=== PATIENT | male | born 1960 | race Hispanic/Latino ===

== ENCOUNTER 2016-11-06 08:00 | Emergency (ER) | payer OTHER ==
[2016-11-06 08:02] VITALS: BMI 30.2
--- NOTE | 2016-11-06 08:32 | ED PDOC ---
Arrival/HPI - General Historian: Patient - History of Present Illness Time/Duration: > week Symptom Onset: Gradual Symptom Course: Worsening <Giuliano Sanches - Last Filed: 11/06/16 09:26> <Giuliano Martinez - Last Filed: 11/06/16 10:30> - General Chief Complaint: Lower Extremity Problem/Injury Time Seen by Provider: 11/06/16 08:08 - History of Present Illness Narrative History of Present Illness (Text): 11/06/16 08:30 56 y/o male with hx PVD presenting with right distal leg pain. Patient states he is able to ambulate about 1/2 block before he experiences right distal leg cramping and pain. He denies pain at rest, swelling or coolness to the leg. Patient states she spoke with Dr. Trey Espinoza regarding his symptoms who advised the patient to come to the ED for evaluation. Patient was seen here on with similar complaints in the left leg. Arterial studies showed SFA occulsive disease left greater than right. The patient was subsequently successfully treated by Dr. Trey Valdes (Giuliano Sanches) Past Medical History - Provider Review Nursing Documentation Reviewed: Yes - Past History Past History: Non-Contributing - Infectious Disease Hx of Infectious Diseases: None - Tetanus Immunization Tetanus Immunization: Unknown - Cardiac Hx Hypertension: Yes Other/Comment: cardiac stent - Musculoskeletal/Rheumatological Hx Back Pain: Yes - Psychiatric Hx Substance Use: No - Surgical History Hx Open Heart Surgery: Yes (CABG) <Giuliano Sanches - Last Filed: 11/06/16 09:26> Family/Social History - Physician Review Nursing Documentation Reviewed: Yes Family/Social History: No Known Family HX Smoking Status: Unknown If Ever Smoked Hx Alcohol Use: No Hx Substance Use: No <Giuliano Sanches - Last Filed: 11/06/16 09:26> Allergies/Home Meds <Giuliano Sanches - Last Filed: 11/06/16 09:26> <Giuliano Martinez - Last Filed: 11/06/16 10:30> Allergies/Adverse Reactions: Allergies No Known Allergies Allergy (Verified 11/06/16 08:02) Home Medications: Home Meds Medication Instructions Recorded Confirmed Aspirin [Ecotrin] 81 mg PO DAILY 08/20/16 11/06/16 Carvedilol [Coreg] 12.5 mg PO BID 08/20/16 11/06/16 Enalapril Maleate [Vasotec] 2.5 mg PO BID 08/20/16 11/06/16 Pravastatin Sodium [Pravachol] 40 mg PO DAILY 08/20/16 11/06/16 Review of Systems - Physician Review All systems were reviewed & negative as marked: Yes - Review of Systems Constitutional: Normal Eyes: Normal ENT: Normal Respiratory: Normal Cardiovascular: Normal, Other (left distal leg pain ). absent: Chest Pain, Palpitations Gastrointestinal: absent: Abdominal Pain, Nausea, Vomiting Genitourinary Male: absent: Dysuria, Frequency, Hematuria Musculoskeletal: Back Pain. absent: Arthralgias Skin: absent: Rash, Pruritis Neurological: absent: Headache, Dizziness, Focal Weakness <Giuliano Sanches Filed: 11/06/16 09:26> Physical Exam Vital Signs Reviewed: Yes Temperature: Afebrile Blood Pressure: Normal Pulse: Regular Respiratory Rate: Normal Appearance: Positive for: Well-Appearing Pain Distress: None Mental Status: Positive for: Alert and Oriented X 3 - Systems Exam Head: Present: Atraumatic, Normocephalic Pupils: Present: PERRL Extroacular Muscles: Present: EOMI Conjunctiva: Present: Normal Mouth: Present: Moist Mucous Membranes Neck: Present: Normal Range of Motion. No: JVD Respiratory/Chest: Present: Clear to Auscultation, Good Air Exchange. No: Respiratory Distress Cardiovascular: Present: Regular Rate and Rhythm, Normal S1, S2, Other (faint dorsalis pedis pulse on right compared to left ) Abdomen: No: Tenderness Upper Extremity: Present: Normal Inspection. No: Cyanosis, Edema Lower Extremity: Present: Normal Inspection. No: Edema, CALF TENDERNESS, NORMAL PULSES (faint dorsalis pedis on left ), Cyanosis Neurological: Present: GCS=15, CN II-XII Intact, Speech Normal Skin: Present: Warm, Dry Psychiatric: Present: Alert, Oriented x 3, Normal Insight, Normal Concentration <Giuliano Sanches Filed: 11/06/16 09:26> Vital Signs Temp Pulse Resp BP Pulse Ox 11/06/16 08:00 98.0 F 85 16 149/100 H 98 Medical Decision Making - EKG Interpretation Interpreted by ED Physician: Yes Type: 12 lead EKG Comparison: No previous EKG avail. <Giuliano Sanches Last Filed: 11/06/16 09:26> <Giuliano Martinez - Last Filed: 11/06/16 10:30> ED Course and Treatment: 11/06/16 08:47 56 y/o male with hx PVD presenting with right distal leg pain 2/2 claudication. There is no evidence of acute limb ischemia. Patient to be evaluated by IR with angiogram. - CBC - CMP - coags - start on 1 normal saline (MyronGiuliano sen) A 56 year old male with right lower leg pain. In agreement with resident note, which includes further HPI details. Patient was seen and evaluated with resident , came up with plan and treatment together. No acute distress on exam. (Giuliano Martinez) - Lab Interpretations Lab Results: 11/06/16 08:30 11/06/16 08:30 Lab Results 11/06/16 08:30: WBC 3.9 L D, RBC 5.11, Hgb 15.8, Hct 44.4, MCV 86.9, MCH 30.9, MCHC 35.6, RDW 12.8, Plt Count 168, MPV 9.5, Gran % 65.1, Lymph % (Auto) 20.1 L , Ida % (Auto) 10.9 H, Eos % (Auto) 3.6, Baso % (Auto) 0.3, Gran # 2.57, Lymph # 0.8 L, Ida # 0.4, Eos # 0.1, Baso # 0.01, PT 10.6, INR 0.98, APTT 25.5, Sodium 139, Potassium 4.0, Chloride 101, Carbon Dioxide 27, Anion Gap 15, BUN 16 , Creatinine 0.8, Est GFR ( Amer) > 60, Est GFR (Non-Af Amer) > 60, Random Glucose 126 H, Calcium 9.5, Total Bilirubin 0.9, AST 29, ALT 25, Alkaline Phosphatase 112, Total Protein 7.8, Albumin 4.3, Globulin 3.5, Albumin/ Globulin Ratio 1.2 - RAD Interpretation Radiology Orders: 11/06/16 09:03 CAR PERIPHERAL VASCULAR ORDER [VASCULAR] Stat - EKG Interpretation EKG Interpretation (Text): 11/06/16 09:27 NSR. No acute ischemia. Lateral ST and T wave abnormality. No previous EKG for comparison 11/06/16 09:30 (Giuliano Sanches) - Medication Orders Current Medication Orders: Discontinued Medications Atropine Sulfate (Atropine) Confirm Administered Dose 1 mg .ROUTE .STK-MED ONE Stop: 11/06/16 09:35 Fentanyl (Fentanyl) Confirm Administered Dose 100 mcg .ROUTE .STK-MED ONE Stop: 11/06/16 09:48 Fentanyl (Fentanyl) Confirm Administered Dose 100 mcg .ROUTE .STK-MED ONE Stop: 11/06/16 10:15 Heparin Sodium (Porcine) (Heparin) Confirm Administered Dose 10,000 units .ROUTE .STK-MED ONE Stop: 11/06/16 09:36 Sodium Chloride (Sodium Chloride 0.45%) 1,000 mls @ 999 mls/hr IV .[id number] JHONATHAN Nitroglycerin/Dextrose (Nitroglycerin 50 Mg/250 Ml D5w) Confirm Administered Dose 250 mls @ ud IV .STK-MED ONE Stop: 11/06/16 09:36 Heparin Sodium (Porcine) (Heparin 1000 Units/500 Ml Ns) Confirm Administered Dose 1,500 mls @ ud IV .STK-MED ONE Stop: 11/06/16 09:36 Heparin Sodium (Porcine) (Heparin 1000 Units/500 Ml Ns) Confirm Administered Dose 500 mls @ ud IV .STK-MED ONE Stop: 11/06/16 09:36 Iodixanol (Visipaque) Confirm Administered Dose 150 ml IV .STK-MED ONE Stop: 11/06/16 09:36 Iodixanol (Visipaque 320 Mg/Ml 200 Ml) Confirm Administered Dose 200 ml IV .STK- MED ONE Stop: 11/06/16 09:36 Lidocaine HCl (Lidocaine 2% 20ml Vial) Confirm Administered Dose 20 ml .ROUTE .STK-MED ONE Stop: 11/06/16 09:35 Midazolam HCl (Versed Inj) Confirm Administered Dose 2 mg .ROUTE .STK-MED ONE Stop: 11/06/16 09:48 Midazolam HCl (Versed Inj) Confirm Administered Dose 2 mg .ROUTE .STK-MED ONE Stop: 11/06/16 10:14 <Giuliano Sanches - Last Filed: 11/06/16 09:26> - 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 / has examined the patient and agrees with the treatment plan. - Scribe Statement The provider has reviewed the documentation as recorded by the Scribe <Giuliano Martinez - Last Filed: 11/06/16 10:30> - Scribe Statement Cristina Gupta Provider Scribe Attestation: All medical record entries made by the Scribe were at my direction and personally dictated by me. I have reviewed the chart and agree that the record accurately reflects my personal performance of the history, physical exam, medical decision making, and the department course for this patient. I have also personally directed, reviewed, and agree with the discharge instructions and disposition. (Giuliano Martinez) Disposition/Present on Arrival - Present on Arrival Any Indicators Present on Arrival: No History of DVT/PE: No History of Uncontrolled Diabetes: No Urinary Catheter: No History of Decub. Ulcer: No History Surgical Site Infection Following: None - Disposition Have Diagnosis and Disposition been Completed?: Yes Disposition Time: 09:27 Patient Plan: Admission <Giuliano Sanches - Last Filed: 11/06/16 09:26> <Giuliano Martinez - Last Filed: 11/06/16 10:30> - Disposition Diagnosis: Leg pain, right, Peripheral vascular disease Disposition: HOSPITALIZED Referrals: Kali Zapata DO [Primary Care Provider] - Follow up with primary
[2016-11-06] MEDS ORDERED: Sodium Chloride 0.45% 1,000 ML IV SCH ×2 (08:45→12:15)
[2016-11-06 08:47] LABS: ADD MANUAL DIFF? NO
[2016-11-06 08:53] LABS: BASO # 0.01 K/mm3 (0.0-2.0); BASO % 0.3 % (0.0-3.0); EOS # 0.1 (0.0-0.7); EOS % 3.6 % (1.5-5.0); GRAN # 2.57 (1.4-6.5); GRAN % 65.1 % (50.0-68.0); HEMATOCRIT 44.4 % (42.0-52.0); LYMPH # 0.8 (1.2-3.4); LYMPH % 20.1 % (22.0-35.0); MEAN CELL VOLUME 86.9 fL (80.0-105.0); MEAN CORPUSCULAR HEMOGLOBIN 30.9 pg (25.0-35.0); MEAN CORPUSCULAR HGB CONC 35.6 g/dl (31.0-37.0); MEAN PLATELET VOLUME 9.5 fl (7.0-11.0); MONO # 0.4 (0.1-0.6); MONO % 10.9 % (1.0-6.0); PLATELET COUNT 168 10^3/uL (120.0-450.0); RED CELL DISTRIBUTION WIDTH 12.8 % (11.5-14.5); WHITE BLOOD COUNT 3.9 10^3/ul (4.5-11.0)
[2016-11-06 09:01] LABS: ALB/GLOB RATIO 1.2 (1.1-1.8); ALKALINE PHOSPHATASE 112 U/L (38-133); ALT/SGPT 25 U/L (7-56); AST/SGOT 29 U/L (15-59); BILIRUBIN,TOTAL 0.9 mg/dL (0.2-1.3); BLOOD UREA NITROGEN 16 mg/dL (7-21); CALCIUM 9.5 mg/dL (8.4-10.5); CARBON DIOXIDE 27 mmol/L (21-33); CHLORIDE 101 mmol/L (98-107); GFR AFRICAN-AMERICAN > 60; GLUCOSE,RANDOM 126 mg/dL (70-110); INR 0.98 (0.93-1.08); PARTIAL THROMBOPLASTIN TIME 25.5 Seconds (23.7-30.8); SODIUM 139 mmol/L (132-148); TOTAL PROTEIN 7.8 g/dL (5.8-8.3)
[2016-11-06] MEDS ORDERED: Lidocaine 2% Inj (20ml) ONE (09:34)
[2016-11-06] MEDS ORDERED: Nitroglycerin 50mg in D5W 250 ML IV ONE (09:35)
[2016-11-06] MEDS ORDERED: Iodixanol 320 MG/ML 200 ML BOTTLE IV ONE (09:35)
[2016-11-06] MEDS ORDERED: Iodixanol 320 mg/ml 150 ml Bottle IV ONE (09:35)
[2016-11-06] MEDS ORDERED: Midazolam 2 MG/2 ML VIAL ONE ×2 (09:47→10:13)
[2016-11-06] MEDS ORDERED: Iodixanol 320 MG/ML 100 ML BOTTLE IV ONE ×2 (10:55→11:43)
--- NOTE | 2016-11-06 12:02 | CARD ---
APPROVED REPORT EKG Measurement Heart [id number] <Conclusion> Normal sinus rhythm Possible Left atrial enlargement Possible Inferior infarct, age undetermined ST & T wave abnormality, consider lateral ischemia Abnormal ECG
[2016-11-06] MEDS ORDERED: Oxycodone/Acetaminophen 5/325 mg Tab PO PRN (12:07)
[2016-11-06] MEDS ORDERED: Oxycodone/Acetaminophen 5/325 mg Tab ONE (13:34)
--- NOTE | 2016-11-06 17:04 | VASCULAR ---
PROCEDURE: 1. Abdominal aortogram and bilateral lower extremity runoff with right selective views. 2. Right external iliac artery angioplasty and stent placement. 3. Right common femoral artery SilverHawk atherectomy and drug-eluting balloon angioplasty 4. Right SFA silver Hawk atherectomy, drug-eluting balloon angioplasty, and focal stent placement. HISTORY: Severe peripheral vascular disease. Lifestyle limiting claudication. Previous left lower extremity intervention. Severe right lower extremity claudication. PHYSICIAN(S): Trey Espinoza M.D. TECHNIQUE: The relative risks and indications of the procedure were explained to the patient and consent obtained. The patient was hydrated prior to the procedure and the appropriate labs drawn. The patient was placed supine on the arteriogram table and the left groin prepped and draped in the usual sterile fashion. Conscious sedation and monitoring were provided throughout the procedure by a nurse. Via a left common femoral artery approach, a 5 Mauritian sheath was placed in the right groin. Through the sheath and over a guidewire, a 5 Mauritian flush catheter was placed in the abdominal aorta at the level of the renal arteries and a PA DSA abdominal aortogram performed. The catheter was pulled down to the aortic bifurcation and bilateral oblique DSA pelvic arteriograms performed. Overlapping bilateral lower extremity DSA arteriograms were obtained from the inguinal ligaments to the ankles. A 0.035 angled Glidewire was advanced over the bifurcation and placed in the mid right SFA. A 7 Mauritian 65 cm destination sheath was placed in the right common iliac artery.. Pull-back pressures were performed from the proximal right SFA to the right common iliac artery. This demonstrated significant gradients in the proximal right SFA, right common femoral artery, and right external iliac artery. 0.014 support wire was placed in the right peroneal artery. Heparin 5000 units IV and nitroglycerin in 250 mcg aliquots were given. Silver Hawk atherectomy of the right common femoral artery and proximal right SFA was performed with an LS catheter. Approximately 4 passes were performed. The right common femoral artery and proximal right SFA were dilated with 6 mm drug-eluting balloon. The severe disease in the distal right SFA underwent silver Hawk atherectomy with an LS catheter. The distal right SFA was dilated with 5 mm drug-eluting balloon. The proximal to mid right SFA was dilated with a 6 mm lutein balloon. A moderate-sized dissection was noted in the proximal right SFA. Subsequently a 6 mm x 6 cm Nitinol stent was placed in the proximal right SFA. The right external iliac artery was dilated with a 7 mm balloon. 80 mm by cm Nitinol stent was placed in the right external iliac artery. This was dilated with an 8 mm balloon. Pull-back pressures revealed no significant gradients. Completion angiograms were performed. The sheath was removed and hemostasis obtained with a Perclose device. The patient tolerated the procedure well. FINDINGS: There are single renal arteries bilaterally which are widely patent and normal in appearance. The nephrograms are symmetric in appearance. The infrarenal abdominal aorta is smoothly disease distally without a radiographically significant stenosis.. The aortic bifurcation is widely patent. The previously placed left common iliac artery stent is patent. The right common iliac artery is patent without a gradient. There is smooth diffuse moderate to severe disease of the right external iliac artery. A significant gradient was demonstrated on pull-back pressures. The left external iliac artery is mildly diseased. The internal iliac arteries are patent bilaterally. Right lower extremity: Th significant stenosis of the right common femoral artery extending into the proximal right SFA is noted. The right profunda femoral artery is enlarged. There is smooth diffuse disease of the entire right SFA. A severe stenosis of the distal right SFA is noted. The right popliteal artery is patent and continuous. The right trifurcation is patent. There is 3 vessel tibial runoff on the right. Left lower extremity: There is mild to moderate smooth posterior plaque in the left common femoral artery. The left SFA is widely patent post intervention without evidence of a dissection or significant restenosis. There is moderate disease in the proximal left profunda femoral artery. The left popliteal artery is patent and continuous. Left trifurcation is intact. There is 3 vessel tibial runoff on the left. IMPRESSION: 1.Successful right external iliac artery angioplasty and stent placement. 2. Successful right common femoral artery silver Hawk atherectomy and drug-eluting balloon angioplasty. 3. Successful multi focal right SFA silver Hawk atherectomy, drug-eluting balloon angioplasty, and focal stent placement.
[2016-11-07 16:02] VITALS: TEMP 98
[2016-11-07 16:03] VITALS: RESP 18; O2SAT 96
[2016-11-07 16:04] VITALS: BP 140/74; PULSE 80
== END 2016-11-06 09:00 | disposition short-term general hospital (02) ==
LOC: ED 08:00
DX: I73.9 Peripheral vascular disease, unspecified (principal); M79.604 Pain in right leg
CPT/HCPCS: 80053; 85025; 85610; 85730; 93005; 99152; 99153; 99285; C1725; C1760; C1764; C1769; C1876; C1887; C1894; J1644; J2250; J3010; J7030; Q9967

== ENCOUNTER 2018-04-04 06:38 | Day surgery (SDC) | payer OTHER ==
[2018-04-04 06:39] VITALS: BMI 30.2
--- NOTE | 2018-04-04 07:29 | ED PDOC ---
Arrival/HPI - General Chief Complaint: Lower Extremity Problem/Injury Time Seen by Provider: 04/04/18 07:11 Historian: Patient - History of Present Illness Narrative History of Present Illness (Text): 04/04/18 07:19 57 year old male, whose past medical history includes hypertension and PVD, presents to the emergency department complaining of right leg pain intermittently for months that worsen in the past week. Patient reports the pain remains at rest and worsens on exertion. Patient denies redness or ulcers or lesions. Denies fevers. Denies numbness or weakness. Denies trauma. Denies hip pain or back pain. Denies chest pain or shortness of breath currently. Denies acute injury. Vascular surgeon: Dr. Trey Espinoza PMD: Dr. Liu Time/Duration: 1 week Symptom Course: Intermittent, Worsening Activities at Onset: Light Context: Exertion (and at rest) Past Medical History - Provider Review Nursing Documentation Reviewed: Yes - Past History Past History: Non-Contributing - Infectious Disease Hx of Infectious Diseases: None - Tetanus Immunization Tetanus Immunization: Unknown - Cardiac Hx Hypertension: Yes Other/Comment: cardiac stent - Musculoskeletal/Rheumatological Hx Back Pain: Yes - Psychiatric Hx Substance Use: No - Surgical History Hx Open Heart Surgery: Yes (CABG) - Anesthesia Hx Anesthesia: Yes Family/Social History - Physician Review Nursing Documentation Reviewed: Yes Family/Social History: No Known Family HX Smoking Status: Former Smoker Hx Alcohol Use: No Hx Substance Use: No Allergies/Home Meds Allergies/Adverse Reactions: Allergies No Known Allergies Allergy (Verified 04/04/18 06:47) Home Medications: Home Meds Medication Instructions Recorded Confirmed Aspirin [Ecotrin] 81 mg PO DAILY 08/20/16 04/04/18 Carvedilol [Coreg] 12.5 mg PO BID 08/20/16 04/04/18 Enalapril Maleate [Vasotec] 2.5 mg PO BID 08/20/16 04/04/18 Review of Systems - Review of Systems Constitutional: absent: Fevers, Other (Chills) Respiratory: absent: SOB Cardiovascular: absent: Chest Pain Gastrointestinal: absent: Diarrhea, Nausea, Vomiting Genitourinary Male: absent: Dysuria, Frequency, Hematuria Musculoskeletal: Other (Right leg pain). absent: Back Pain, Neck Pain Neurological: absent: Headache, Dizziness, Focal Weakness, Other (numbness) Physical Exam - Physical Exam Narrative Physical Exam (Text): Head: Atraumatic. Normocephalic. Eyes: PERRL. EOMI. Conjunctivae are not pale. ENT: Mucous membranes are moist and intact. No angioedema. Neck: Supple. Full ROM. Cardiovascular: Regular rate. Regular rhythm. Distal pulses weak to right lower extremity. Pulmonary/Chest: No evidence of respiratory distress. Clear to auscultation bilaterally. No wheezing, rales or rhonchi. Abdominal: Soft and non-distended. Back: Nontender. Extremities: No edema. No cyanosis. No clubbing. Right foot somewhat cooler to touch. Distal pulses diminished. There is right calf tenderness to palpation. Skin: No erythema or foot ulcerations noted. No pus or drainage. Neurological: Alert, awake, and oriented to person, place, time, and situation. Normal speech. Sensation intact. Motor intact. Patient can discriminate light touch to lower extremity. Psychiatric: Good eye contact. Normal interaction, affect, and behavior. Vital Signs Reviewed: Yes Vital Signs Temp Pulse Pulse Resp BP Pulse Ox 04/04/18 13:50 72 18 110/62 98 04/04/18 13:20 97.8 F 69 18 124/68 96 04/04/18 12:50 97.8 F 71 18 132/63 97 04/04/18 12:45 97.8 F 69 19 130/72 04/04/18 12:30 97.8 F 66 15 132/74 04/04/18 12:15 97.8 F 70 16 132/75 04/04/18 12:00 97.8 F 64 17 121/69 04/04/18 11:45 97.8 F 69 16 135/74 04/04/18 08:15 98 F 79 18 138/56 L 98 04/04/18 06:50 97.7 F 80 17 128/77 99 Temperature: Afebrile Blood Pressure: Normal Pulse: Regular Respiratory Rate: Normal Appearance: Positive for: Well-Appearing, Non-Toxic, Uncomfortable Pain Distress: Mild Mental Status: Positive for: Alert and Oriented X 3 Medical Decision Making ED Course and Treatment: 04/04/18 07:19 Impression: 57 year old male presents complaining of right leg pain intermittently for months that worsen in the past week. Plan: -- Labs -- IV FLuids -- US Duplex Lower Extrm Vein Right -- Reassess and disposition Prior Visits: Notes and results from previous visits were reviewed. Progress Notes: By history, patient has had intermittent pain for several months, worse over past week. On exam, symptoms are concerning for peripheral vascular disease, although time of symptoms are not acute onset but for several days/months. He states he quit smoking several months ago. No cellulitis or ulcerations noted. NO chest pain or shortness of breath currently. Preliminary ultrasound report negative for DVT. 04/04/18 07:[address] Trey Espinoza , who reports patient had recent RACH tests which were abnormal. Plan as per Dr. Shantel Espinoza is angiography today, will admit to Dr. Shantel Espinoza service , [facility]. 04/04/18 14:44 - Lab Interpretations Lab Results: 04/04/18 07:30 04/04/18 07:30 Lab Results 04/04/18 07:30: Sodium 139, Potassium 4.1, Chloride 103, Carbon Dioxide 24, Anion Gap 15, BUN 16, Creatinine 0.7 L, Est GFR ( Amer) > 60, Est GFR ( Non-Af Amer) > 60, Random Glucose 199 H, Calcium 9.0, Total Bilirubin 0.6, AST 56, ALT 145 H, Alkaline Phosphatase 178 H, Total Protein 7.3, Albumin 4.3, Globulin 3.0, Albumin/Globulin Ratio 1.4 04/04/18 07:30: PT 11.8, INR 1.03, APTT 29.9 04/04/18 07:30: WBC 6.4 D, RBC 5.43, Hgb 16.7, Hct 46.6, MCV 85.8, MCH 30.8, MCHC 35.8, RDW 13.2, Plt Count 179, MPV 9.7, Gran % 67.2, Lymph % (Auto) 21.0 L , [place] % (Auto) 8.5 H, Eos % (Auto) 2.8, Baso % (Auto) 0.5, Gran # 4.30, Lymph # (Auto) 1.3, [place] # (Auto) 0.5, Eos # (Auto) 0.2, Baso # (Auto) 0.03 I have reviewed the lab results: Yes - RAD Interpretation Radiology Orders: 04/04/18 07:19 DUPLEX LOWER EXTRM VEIN RIGHT [US] Stat 04/04/18 08:28 CAR PERIPHERAL VASCULAR ORDER [VASCULAR] Routine Marketing Specialist: Radiologist - Medication Orders Current Medication Orders: Acetaminophen (Tylenol 325mg Tab) 650 mg PO Q4H PRN PRN Reason: Pain, Mild (1-3) Sodium Chloride (Sodium Chloride 0.45%) 1,000 mls @ 80 mls/hr IV .[id number] JHONATHAN Last Admin: 04/04/18 08:08 Dose: 80 mls/hr eMAR Start Stop Document 04/04/18 08:08 SRE (Rec: 04/04/18 08:09 SRE [id number]) Intravenous Solution Start Date 04/04/18 Start Time 08:09 End Date 04/04/18 Ondansetron HCl (Zofran Inj) 4 mg IVP ONCE PRN PRN Reason: Nausea/Vomiting Oxycodone/Acetaminophen (Percocet 5/325 Mg Tab) 1 tab PO Q4H PRN PRN Reason: Pain, moderate (4-7) Stop: 04/07/18 11:35 - Scribe Statement The provider has reviewed the documentation as recorded by the Lauren Tenorio Provider Scribe Attestation: All medical record entries made by the Lauren were at my direction and personally dictated by me. I have reviewed the chart and agree that the record accurately reflects my personal performance of the history, physical exam, medical decision making, and the department course for this patient. I have also personally directed, reviewed, and agree with the discharge instructions and disposition. Disposition/Present on Arrival - Present on Arrival Any Indicators Present on Arrival: No History of DVT/PE: No History of Uncontrolled Diabetes: No Urinary Catheter: No History of Decub. Ulcer: No History Surgical Site Infection Following: None - Disposition Have Diagnosis and Disposition been Completed?: Yes Diagnosis: Peripheral vascular disease, Leg pain Disposition: HOSPITALIZED Disposition Time: 07:54 Patient Plan: Admission Patient Problems: Current Active Problems Problem Status Onset Leg pain Acute Peripheral vascular disease Acute Condition: FAIR
[2018-04-04] MEDS ORDERED: Sodium Chloride 0.45% 1,000 ML IV SCH (07:30)
[2018-04-04 07:52] LABS: BASO # 0.03 K/mm3 (0.0-2.0); BASO % 0.5 % (0.0-3.0); EOS # 0.2 (0.0-0.7); EOS % 2.8 % (1.5-5.0); GRAN # 4.3 (1.4-6.5); GRAN % 67.2 % (50.0-68.0); HEMOGLOBIN 16.7 g/dL (14.0-18.0); LYMPH # 1.3 (1.2-3.4); MEAN CELL VOLUME 85.8 fl (80.0-105.0); MEAN CORPUSCULAR HEMOGLOBIN 30.8 pg (25.0-35.0); MEAN CORPUSCULAR HGB CONC 35.8 g/dl (31.0-37.0); MEAN PLATELET VOLUME 9.7 fl (7.0-11.0); MONO # 0.5 (0.1-0.6); MONO % 8.5 % (1.0-6.0); RBC 5.43 10^6/uL (3.5-6.1); RED CELL DISTRIBUTION WIDTH 13.2 % (11.5-14.5); WHITE BLOOD COUNT 6.4 10^3/ul (4.5-11.0)
[2018-04-04 07:56] LABS: ALB/GLOB RATIO 1.4 (1.1-1.8); ALBUMIN 4.3 g/dL (3.0-4.8); ALT/SGPT 145 U/L (7-56); AST/SGOT 56 U/L (17-59); BLOOD UREA NITROGEN 16 mg/dL (7-21); GFR NON-AFRICAN AMERICAN > 60; INR 1.03; PARTIAL THROMBOPLASTIN TIME 29.9 Seconds (25.1-36.5); PROTHROMBIN TIME 11.8 SECONDS (9.4-12.5)
[2018-04-04] MEDS ORDERED: Nitroglycerin 50mg in D5W 50 MG/250 ML BOTTLE IV ONE (08:22)
[2018-04-04] MEDS ORDERED: Lidocaine PF 2% (5 ml) Inj (For Cardiac Arrhy) ONE (08:22)
[2018-04-04] MEDS ORDERED: Iodixanol 320 MG/ML 200 ML BOTTLE IV ONE (08:23)
[2018-04-04] MEDS ORDERED: Iodixanol 320 MG/ML 100 ML BOTTLE IV ONE ×2 (08:23→11:11)
[2018-04-04] MEDS ORDERED: Iodixanol 320 mg/ml 150 ml Bottle IV ONE (08:23)
[2018-04-04] MEDS ORDERED: Midazolam 2 MG/2 ML VIAL ONE ×2 (09:29→09:40)
[2018-04-04] MEDS ORDERED: Oxycodone/Acetaminophen 5/325 mg Tab PO PRN (11:34)
[2018-04-04] MEDS ORDERED: Oxycodone/Acetaminophen 5/325 mg Tab ONE (11:57)
[2018-04-04] MEDS ORDERED: Oxycodone/Acetaminophen 5/325 mg Tab PO ONE (11:59)
[2018-04-04 13:08] VITALS: RESP 18
--- NOTE | 2018-04-04 14:46 | US ---
PROCEDURE: Right lower extremity venous US HISTORY: Leg pain and swelling. Evaluate for DVT. PHYSICIAN(S): Trey Espinoza M.D. TECHNIQUE: Duplex sonography and color-flow Doppler with graded compression were used to evaluate the deep venous system of the right lower extremity. FINDINGS: The visualized deep venous system of the right lower extremity is sonographically normal and compressible. Normal waveforms and augmentation are seen. There is no sonographic evidence for deep venous thrombosis in the visualized segments of the right lower extremity. IMPRESSION: 1. No sonographic evidence for deep venous thrombosis in the visualized segments of the right lower extremity.
[2018-04-04 15:47] VITALS: O2SAT 98
[2018-04-04 18:55] VITALS: BP 138/56; PULSE 79; TEMP 98
--- NOTE | 2018-04-04 21:00 | VASCULAR ---
PROCEDURE: 1. Abdominal aortogram and bilateral lower extremity runoff with right selective views. 2. Right profunda femoral artery origin angioplasty. 3. Long segment right SFA jet stream atherectomy, drug-eluting balloon angioplasty, and distal Supera stent placement 4. Right popliteal artery drug-eluting balloon angioplasty HISTORY: Severe peripheral vascular disease. Previous bilateral lower extremity intervention. Recurrent right lower extremity claudication. PHYSICIAN(S): Trey Espinoza M.D. TECHNIQUE: The relative risks and indications of the procedure were explained to the patient and consent obtained. The patient was hydrated prior to the procedure and the appropriate labs drawn. The patient was placed supine on the arteriogram table and the left groin prepped and draped in the usual sterile fashion. Conscious sedation and monitoring were provided throughout the procedure by a nurse. Via a left common femoral artery approach, a 5 [place]ic sheath was placed in the left groin. Through the sheath and over a guidewire, a 5 [place]ic flush catheter was placed in the abdominal aorta at the level of the renal arteries and a PA DSA abdominal aortogram performed. The catheter was pulled down to the aortic bifurcation and bilateral oblique DSA pelvic arteriograms performed. Overlapping bilateral lower extremity DSA arteriograms were obtained from the inguinal ligaments to the ankles. A 0.035 angled Glidewire was advanced over the bifurcation and placed in the mid right SFA. A 7 Icelandic 45 cm destination sheath was placed in the right common femoral artery.. Heparin 5000 units IV and nitroglycerin in 250 mcg aliquots were given. The stenosis at the origin of the right profunda femoral artery was crossed with angled glidewire and 5 Icelandic catheter. Exchange is made for a 0.014 guidewire. The origin of the right profunda femoral artery was dilated with a 6 mm x 4 cm balloon. A good angiographic result was obtained. No stent was required. The diffuse disease throughout the right SFA was crossed with a 0.035 angled glidewire and 5 Icelandic catheter. Re-entry was not easily obtained in the right adductor canal. Subsequently an out back catheter was performed. A 0.014 wire was placed in the peroneal artery. Exchange is made for a support wire. 84-7 mm Lazar filter was placed in the right popliteal artery just below the knee. Jet stream atherectomy of the right SFA and proximal popliteal artery was performed with a 2.4/3.4 catheter. Two passes were made. The right SFA was then dilated with 6 and 7 mm drug-eluting balloons. A dissection a residual stenosis was noted distally. The distal right SFA was dilated with a 7 mm balloon. 6.5 x 100 mm Supera stent was deployed in the distal right SFA. The right popliteal artery was dilated with 5 mm drug-eluting balloon. After suction through a 5 Icelandic sheath, the filter was removed without difficulty. Completion angiograms were performed. The sheath was removed hemostasis obtained with a Perclose device. The patient tolerated the procedure well. FINDINGS: There are single renal arteries bilaterally which are widely patent and normal in appearance. The nephrograms are symmetric in appearance. The infrarenal abdominal aorta is calcified and patent with some ectasia distally.. The aortic bifurcation is small but patent.. The previously placed iliac stents are patent. Right lower extremity: The right common femoral artery is patent with some posterior plaque. There is a high-grade stenosis of the origin of the right profunda femoral artery.. Severe diffuse re- stenosis of the right SFA is present. There is a 6 cm occlusion of the terminal right SFA. The right popliteal artery is patent. The right trifurcation is intact. There is 3 vessel runoff on the right. Left lower extremity: Left common femoral artery is patent. The left profunda femoral artery is patent. The left superficial femoral artery is diffusely diseased with a moderate severe focal stenosis in its mid segment. The left popliteal artery is patent and continuous. The left trifurcation is patent with 3 vessel tibial runoff. IMPRESSION: 1.Successful long segment right SFA jet stream atherectomy, drug-eluting balloon angioplasty, and distal Supera stent placement. 2. Successful right popliteal artery drug-eluting balloon angioplasty. 3. Successful right profunda femoral artery origin angioplasty.
== END 2018-04-04 17:00 | disposition home or self-care (01) ==
LOC: ED 06:38 → SDS 07:55
PROVIDERS: ATTEND Radiology Vascular & Interventional Radiology
DX: I70.211 Atherosclerosis of native arteries of extremities with intermittent claudication, right leg (principal); I10 Essential (primary) hypertension; Z95.1 Presence of aortocoronary bypass graft; Z95.5 Presence of coronary angioplasty implant and graft; Z87.891 Personal history of nicotine dependence
CPT/HCPCS: 37227; 75625; 75710; 80053; 85025; 85610; 85730; 93971; 99152; 99153; 99283; C1725 ×8; C1760 ×2; C1769 ×6; C1876; C1884 ×2; C1885; C1887 ×2; C1894; J0690; J1644 ×2; J2250; J2405; J3010; Q9966; Q9967 ×2